=== PATIENT | female | born 1970 ===

== ENCOUNTER 2017-01-19 15:07 | Observation (INO) ==
--- NOTE | 2017-01-19 16:47 | General Surg History&Physical ---
Date of Encounter: 01/19/17 Time of Encounter: 16:40 Assessment and Plan (1) Acute cholecystitis due to biliary calculus Current Visit: Yes Status: Acute The assessment and plan as outlined above was discussed with the patient and/or family members who expressed understanding and agreement. All questions were answered. The patient has cholelithiasis and gallbladder distention with pericolic cystic fluid and a markedly abnormal CAT scan of the abdomen. Findings are consistent with acute cholecystitis. I have recommended laparoscopic cholecystectomy. We will proceed on an urgent basis due to the lack of pain control with narcotics History of Present Illness Chief complaint: Abdominal pain HPI: Ms. Anders is a 46 year old female Morbidly obese female with new onset right upper quadrant pain. She states that she has had intermittent episodes of indigestion but discounted these has minor episodes. She now has acute onset severe unrelenting right upper quadrant pain. This started last evening. The pain is not stopped despite multiple doses of narcotics. She has nausea but no vomiting. She has pain localized to the right upper quadrant. She rates her pain at 9 out of 10. CAT scan of the abdomen was obtained. She has an obstructed gallbladder with pericholecystic fluid consistent with acute cholecystitis as well as cholelithiasis. She now presents for urgent evaluation for acute cholecystitis Past Med Surg Social Fam HX - Past Medical History Medical history: arthritis, hyperlipidemia, hypertension, other Psychiatric history: depression - Past Surgical History Surgical History: no surgical history, other (She has had jaw surgery back in the for fracture) - Social History Smoking Status: Current every day smoker Smokeless Tobacco Status: No Alcohol use: occasionally Drug use: none Medications and Allergies Aspirin 325 mg PO QID 01/19/17 [History] Famotidine [Pepcid] 20 mg PO BID #30 tablet 01/19/17 [Rx] HYDROcodone/Acet 5/325 mg [[place] 5-325 mg] 1 tab PO Q6H #14 tab 01/19/17 [Rx] Lisinopril [Zestril] 10 mg PO DAILY 01/19/17 [History] hydroCHLOROthiazide [Hydrochlorothiazide] 25 mg PO DAILY 01/19/17 [History] 3 Allergy/AdvReac Type Severity Reaction Status Date / Time No Known Allergies Allergy Verified 01/19/17 05:37 Review of Systems All systems PM: A 10-system review of systems was performed and is negative for pertinent findings except as documented above in the HPI. General Surgery Exam Initial Vital Signs Temp Pulse Resp BP Pulse Ox 97.3 F L 86 18 123/77 93 01/19/17 16:28 01/19/17 16:28 01/19/17 16:28 01/19/17 16:28 01/19/17 16:28 - General physical appearance well developed, well nourished, severe pain, obese - ENT normal pinna, normal nares, normal mucosa, no hearing loss, no congestion, Other (Poor dentition) - Respiratory normal expansion, normal respiratory effort, clear to percussion, clear to auscultation - Cardiovascular Cardiovascular exam: Present: RRR, 15, 16 - Abdomen Abdomen general surgery: Present: bowel sounds present, tender, guarding Abdominal Tenderness: Present: RUQ - Integumentary Integumentary general surgery: Present: warm and dry, other (No evidence of jaundice) - Neurologic Present: CN 2-12 grossly intact, normal coordination, normal sensation - Psychiatric Psychiatric general surgery: Present: appropriate, oriented to person, oriented to place, oriented to time, speech is normal, memory intact Results - Labs All other labs normal. Laboratory testing from [facility] is reviewed. There is no leukocytosis with a white blood cell count of 10,200. Liver function tests are not elevated. - Imaging CT scan - abdomen: image reviewed (I personally reviewed the CAT scan of the abdomen. Gallbladder was markedly abnormal with cholelithiasis, obstruction, pericholecystic fluid. Findings are consistent with acute cholecystitis)
[2017-01-19] MEDS ORDERED: Ondansetron 4 MG/2 ML VIAL IVP PRN ×2 (16:52→21:35)
[2017-01-19] MEDS ORDERED: *HR* HYDROmorphone (PF) 1 MG/ML SYRINGE IVP PRN ×2 (16:52→19:44)
[2017-01-19] MEDS ORDERED: 0.9 % Sodium Chloride 1,000 ML IVC SCH (17:00)
[2017-01-19] MEDS: Albuterol 2.5 MG/3 ML NEBULIZER IH ONE ×2 (17:56→18:08)
[2017-01-19] MEDS ORDERED: *HR* FentaNYL (PF) 100 MCG/2 ML VIAL ONE (18:08)
[2017-01-19] MEDS ORDERED: *HR* Propofol 200 MG/20 ML VIAL IVP ONE (18:08)
[2017-01-19] MEDS ORDERED: *HR* Midazolam HCl 2 MG/2 ML VIAL ONE (18:08)
[2017-01-19] MEDS ORDERED: *HR* Succinylcholine 200 MG/10 ML VIAL IVP ONE (18:11)
[2017-01-19] MEDS ORDERED: Dexamethasone 4 MG/ML VIAL ONE ×2 (18:11→20:09)
[2017-01-19] MEDS ORDERED: Ondansetron 4 MG/2 ML VIAL ONE (18:11)
[2017-01-19] MEDS ORDERED: *HR* Rocuronium Bromide 50 MG/5 ML VIAL ONE (18:11)
[2017-01-19] MEDS ORDERED: Lidocaine -MPF 2% 2 ML VIAL ONE (18:11)
[2017-01-19] MEDS ORDERED: CefOXitin 1,000 MG VIAL ONE (18:15)
--- NOTE | 2017-01-19 18:20 | Anesthesia Evaluation PreOp ---
Date of Encounter: 01/19/17 Time of Encounter: 18:18 - Past History Planned Operation: Lap. 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) Other Medical History: Other (MO-BMI 47.9) Anesthesia History: No Prior Anesthetic Complications, Past Anesthesia (Jaw Fx) : No Test: Negative (01/19/2017) Alcohol Use: occasionally Drug use: none Medications and Allergies Aspirin 325 mg PO QID 01/19/17 [History] Famotidine [Pepcid] 20 mg PO BID #30 tablet 01/19/17 [Rx] HYDROcodone/Acet 5/325 mg [[place] 5-325 mg] 1 tab PO Q6H #14 tab 01/19/17 [Rx] Lisinopril [Zestril] 10 mg PO DAILY 01/19/17 [History] hydroCHLOROthiazide [Hydrochlorothiazide] 25 mg PO DAILY 01/19/17 [History] 3 Allergy/AdvReac Type Severity Reaction Status Date / Time No Known Allergies Allergy Verified 01/19/17 05:37 - Meds/Allergy Pre-op Review Medications Reviewed: Yes Allergies Reviewed: Yes Beta Blockers on Current Med List: No Anesthesia Results - Labs Laboratory Tests 01/19/17 01/19/17 01/19/17 06:20 14:13 14:13 WBC 10.9 Hgb 14.0 Hct 39.2 Plt Count 214 INR 1.2 Sodium 140 Potassium 3.2 L Chloride 103 Carbon Dioxide 24 BUN 8 Creatinine 0.65 Urine Test 01/19/17 17:21 WBC Hgb Hct Plt Count INR Sodium Potassium Chloride Carbon Dioxide BUN Creatinine Urine Test Negative Anesthesia Exam O2 Sat Height 1.65 m Weight 130.635 kg O2 Sat by Pulse Oximetry 93 O2 Sat by Pulse Oximetry 93 Vital Signs Temp Pulse Resp BP Pulse Ox 97.3 F L 86 18 123/77 93 01/19/17 16:28 01/19/17 16:28 01/19/17 16:28 01/19/17 16:28 01/19/17 16:28 Vital Signs/O2 Sat, Most Current Temp Pulse Resp BP Pulse Ox 97.3 F L 86 18 123/77 93 01/19/17 16:28 01/19/17 16:28 01/19/17 18:10 01/19/17 18:10 01/19/17 18:10 Height: 5'5'' Weight: 288# NPO (# of Hours): > 8 hrs Pain Scale: 0 Pain Scale Used: Numeric (1 - 10) - HEENT Pupil (Motor): Pupils equal, EOMI Mallampati: III Teeth: Missing, Poor dentition Oral Opening: Greater than 3 - FILTER [employer] 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
[2017-01-19] MEDS ORDERED: CefOXitin 2,000 MG VIAL IVPB ONE (18:37)
[2017-01-19] MEDS ORDERED: Acetaminophen IV 1,000 MG/100 ML INFUS..BTL ONE (19:20)
[2017-01-19] MEDS ORDERED: *HR* HYDROmorphone 2 MG/ML SYRINGE ONE (19:23)
[2017-01-19] MEDS ORDERED: Ketorolac 30 MG/ML VIAL ONE (19:42)
[2017-01-19] MEDS ORDERED: *HR* Labetalol 20 MG/4 ML SYRINGE IVP PRN (19:44)
[2017-01-19] MEDS ORDERED: *HR* Promethazine 25 MG/ML VIAL IVP PRN (19:44)
[2017-01-19] MEDS ORDERED: Neostigmine Methylsulfate 3 MG/3 ML SYRINGE ONE (20:09)
--- NOTE | 2017-01-19 20:21 | Operative Note ---
Date of procedure: 01/19/17 Pre-op diagnosis: Acute cholecystitis and cholelithiasis Post-op diagnosis: same Procedure: Laparoscopic cholecystectomy, cholangiogram +30% (morbid obesity and severe inflammation) Anesthesia: JASE Surgeon: Lele Mcguire Estimated blood loss (cc): 40 Specimen: Gallbladder and contents Condition: stable Disposition: PACU Procedure in Detail: Laparoscopic cholecystectomy and intraoperative cholangiogram +30% for profound morbid obesity, BMI 48, severe inflammation and obstruction of the gallbladder Operative procedure after informed consent and appropriate patient identification timeout the patient was taken to the major operating suite and placed supine position given adequate general endotracheal anesthesia the abdomen is prepped and draped in sterile fashion utilizing ChloraPrep standard draping techniques timeout was taken patient is identified. I made a vertical midline incision above the umbilicus dissected down to level of fascia there are 2 traction stitches placed in the abdominal cavity was entered visually. A Rodriges trocar was placed in the abdomen and the abdomen was insufflated to 15 mmHg pressure CO2 the gallbladder was visualized. A placement 11 port in the subxiphoid area and 2 5 mm ports in the subcostal area. Dissection was hampered by profound morbid obesity and positioning. The patient also had acute and chronic inflammatory changes around the gallbladder. The patient also had a completely obstructed gallbladder. The gallbladder was decompressed with a decompression needle. The gallbladder was grasped and elevated. A variety of blunt and sharp dissection techniques were used to isolate the cystic duct and cystic artery. This was very difficult. The gallbladder was over 15 cm in length due to chronic obstruction. This in combination with her profound morbid obesity made dissection difficult and added 30-45 minutes to this portion of the case. The cystic artery was controlled with 2 surgical clips proximally and one distally and it was divided I placed a surgical clip on the neck the gallbladder and obtained an intraoperative cholangiogram using 10 mL of Isovue. Intraoperative cholangiogram was normal. The cholangiocatheter was removed and the cystic duct was controlled with 2 surgical clips proximally and was divided the gallbladder was removed from the gallbladder fossae using electrocautery. This portion that case took 15-20 minutes longer than normal due to severe inflammatory changes. The gallbladder was removed through the #11 port site using a specimen bag. I had to enlarge the fascial opening to get the gallbladder out. This fascia opening was subsequently closed with 3 stitches of interrupted 0 Nurolon. I replaced the #11 port and irrigated with copious amounts of antibiotic containing solution. There is no evidence of bleeding or bile leak. All trochars were removed. Fascia was closed with 0 Vicryl skin with 2-0 and 4-0 Vicryl She tolerated the procedure well and was transferred to recovery in stable condition
[2017-01-19] MEDS ORDERED: Ringers Solution, Lactated 1,000 ML ONE (21:13)
[2017-01-19] MEDS ORDERED: *HR* OxyCODONE/APAP 5/325 TABLET PO PRN (21:35)
[2017-01-19] MEDS: 0.9 % Sodium Chloride 1,000 ML IVC SCH ×2 (22:06→22:12)
[2017-01-19] MEDS: Famotidine 20 MG TABLET PO SCH (22:12)
[2017-01-19] MEDS: *HR* HYDROmorphone (PF) 1 MG/ML SYRINGE IVP PRN (22:13)
--- NOTE | 2017-01-19 22:40 | Anesthesia Evaluation Post Op ---
Date of Encounter: 01/19/17 Time of Encounter: 21:20 - Vital Signs Vital Signs: Vital Signs/O2 Sat/Glucose, Most Current Temp Pulse Resp BP Pulse Ox 01/19/17 21:12 82 18 133/76 95 01/19/17 21:02 82 18 135/89 94 01/19/17 20:52 98.3 F 72 16 139/77 97 01/19/17 20:42 80 16 134/80 91 01/19/17 20:32 82 16 143/83 96 01/19/17 20:22 98.2 F 72 18 129/93 100 - Lungs Lungs: Clear Ascult./Percussion - Airway Airway: Non-obstructed - Cardiovascular Baseline Rhythm - Mental Status Mental Status: Asleep with brisk response to light stimulation - Pain Pain Scale: 1 Pain Scale used: Sanz-Hannon (Faces) - Nausea Vomiting Nausea Vomiting: Not Present - Hydration Hydration: Ice chips, Has not voided - Discharge PostOp Status: Transfer Patient to floor Anes Supervising Prov Stmt: Pt seen/evaluated, VSS And pt has met criteria for discharge to floor. - MD Zahra
[2017-01-20] MEDS: cefOXitin 2,000 MG in D5% in Water (Mini-Bag+) 100 ML IVPB SCH ×2 (00:41→08:41)
[2017-01-20] MEDS: *HR* HYDROmorphone (PF) 1 MG/ML SYRINGE IVP PRN ×4 (00:42→08:42)
[2017-01-20] MEDS: 0.9 % Sodium Chloride 1,000 ML IVC SCH ×3 (07:29→13:47)
[2017-01-20] MEDS: Famotidine 20 MG TABLET PO SCH (08:41)
[2017-01-20] MEDS ORDERED: hydroCHLOROthiazide 25 MG TABLET PO SCH (09:00)
[2017-01-20 11:26] VITALS: BP 128/78
--- NOTE | 2017-01-20 12:18 | Discharge Summary ---
<Caty Quach - Last Filed: 01/20/17 13:20> Date of Encounter: 01/20/17 Time of Encounter: 12:18 - Discharge Diagnosis (1) Acute cholecystitis due to biliary calculus Priority: Primary Status: Resolved - Discharge Medications Prescriptions: OxyCODONE/APAP 5/325 [Percocet 5/325 MG] 1 each PO Q4HR PRN #42 tablet PRN Reason: Pain (1-5) Docusate [Colace] 100 mg PO BID #60 capsule Home Medications: Aspirin 325 mg PO QID 01/19/17 [History] Famotidine [Pepcid] 20 mg PO BID #30 tablet 01/19/17 [Rx] Lisinopril [Zestril] 10 mg PO DAILY 01/19/17 [History] hydroCHLOROthiazide [Hydrochlorothiazide] 25 mg PO DAILY 01/19/17 [History] Docusate [Colace] 100 mg PO BID #60 capsule 01/20/17 [Rx] Meloxicam [Meloxicam] 15 mg PO DAILY 01/20/17 [History] OxyCODONE/APAP 5/325 [Percocet 5/325 MG] 1 each PO Q4HR PRN #42 tablet 01/20/17 [Rx] Allergies/Adverse Reactions: 3 Allergy/AdvReac Type Severity Reaction Status Date / Time No Known Allergies Allergy Verified 01/19/17 05:37 General Surgery Exam Initial Vital Signs Temp Pulse Resp BP Pulse Ox 97.3 F L 86 18 123/77 93 01/19/17 16:28 01/19/17 16:28 01/19/17 16:28 01/19/17 16:28 01/19/17 16:28 - General physical appearance well developed, well nourished, no distress - Respiratory normal expansion, normal respiratory effort, clear to percussion, clear to auscultation - Cardiovascular Cardiovascular exam: Present: RRR, distant heart sounds - Abdomen Abdomen general surgery: Present: bowel sounds present, soft, tender (Expected postopertive) Hernia: Present: none - Incision Incision: Present: clean and dry, intact - Integumentary Integumentary general surgery: Present: warm and dry, no abnormal pigmentation - Neurologic Present: CN 2-12 grossly intact, normal coordination, normal sensation - Musculoskeletal Present: normal gait, normal posture - Psychiatric Psychiatric general surgery: Present: A&Ox3, appropriate, oriented to person, oriented to place, oriented to time, speech is normal, memory intact Date of admission: 01/19/17 16:12 Primary care physician: Tamara Grier CNP Discharging clinician: Lele Mcguire (Tomasz Quach) Anticipated date of discharge: 01/20/17 - Patient Status Disposition: Home, Self-Care Condition: Good Functional capacity at discharge: independent ambulation Overall status at discharge: patient is progressing back to baseline - Discharge Instructions Instructions: Oxycodone/Acetaminophen (By mouth), Laxative, Stool Softeners ( By mouth), Laparoscopic Cholecystectomy (DC) Follow Up With: Caty Quach CNP [Advanced Practice Nurse] - 02/04/17 1:00 pm Additional Instructions: No pushing, pulling, or lifting greater than 15 lbs for two weeks. You may shower today, but no tub bath, soaking, or swimming for two weeks. Take your pain medication as directed. Do NOT take Oxycodone with Hydrocodone. Take colace while on narcotics. You may hold for loose stool. Report any increase in pain, drainage, or fevers greater than 100.5 degree Fahrenheit. - Diet and Activity Activity: resume usual activities as tolerated Diet: advance to your usual diet - Hospital Course Hospital course: Ms. Anders is a 46 year old female who presented for right upper quadrant pain on 01/19/2017 that she stated had been intermittent and felt like indegetstion then progressed to severe unrelenting right upper quadrant pain. CAT scan of the abdomen was obtained and noted obstructed gallbladder with pericholecystic fluid consistent with acute cholecystitis as well as cholelithiasis. She was taken to the OR where she underwent a laproscopic choecystectomy by Dr. Mcguire on 01/19/2017. She states he discomfort is controlled on the current regimen, is tolerating a diet, ambulating and voiding without difficulty, VSS and is afebrile. We will begin discharge planning in the next 24-48 and a follow-up in the office in two weeks. - Time Spent with Patient Total time spent providing and/or coordinating discharge services: Labs on day of discharge: Labs from last 24 hours 01/19/17 17:21 Urine Test Negative - Impressions ITS Impressions Cholangiogram,Operative 01/19/17 00:00 IMPRESSION: Intraoperative cholangiogram. Please refer to the surgeons notes for operative details. No focal filling defect identified. D/ / Bernard Rollins MD / Bernard Rollins MD Interpreting Provider: Bernard Rollins MD <Lele Mcguire - Last Filed: 01/20/17 15:18> Date of Encounter: 01/20/17 - Discharge Diagnosis (1) Acute cholecystitis due to biliary calculus Status: Resolved General Surgery Exam Initial Vital Signs Temp Pulse Resp BP Pulse Ox 97.3 F L 86 18 123/77 93 01/19/17 16:28 01/19/17 16:28 01/19/17 16:28 01/19/17 16:28 01/19/17 16:28 Date of admission: 01/19/17 16:12 Primary care physician: Tamara Grier CNP - Hospital Course Hospital course: Ms. Anders is a 46 year old female - Time Spent with Patient Total time spent providing and/or coordinating discharge services: Labs on day of discharge: Labs from last 24 hours 01/19/17 17:21 Urine Test Negative - Impressions ITS Impressions Cholangiogram,Operative 01/19/17 00:00 IMPRESSION: Intraoperative cholangiogram. Please refer to the surgeons notes for operative details. No focal filling defect identified. D/ / Bernard Rollins MD / Bernard Rollins MD Interpreting Provider: Bernard Rollins MD - Attending Attestation I have personally performed a face to face evaluation on this patient. I have reviewed and agree with the care plan. History and Exam by me shows: The patient is seen and evaluated on morning rounds with the resident. I reviewed the plan with the clinical nurse practitioner. Patient tolerated laparoscopic cholecystectomy very well. Physical examination is totally normal. Incisions are clean and dry without any drainage. She should be ready for discharge after completing her perioperative antibiotics Lele Mcguire MD FACS
--- NOTE | 2017-01-20 12:22 | Electrocardiograph Report ---
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
== END 2017-01-20 16:52 | disposition home or self-care (01) ==
LOC: 3ANU
PROVIDERS: ADMIT Surgery; ATTEND Surgery